=== PATIENT | male | born 1990 | race Caucasian/White ===

== ENCOUNTER 2016-10-18 02:12 | Emergency (ER) | payer MEDICAID ==
[~2016-10-18] VITALS: Ht 177.8 cm; Wt 85.0 kg
[2016-10-18] MEDS ORDERED: LIDOCAINE 1%-EPI 1:100K, 20ML SQ ONE (02:30)
[2016-10-18] MEDS ORDERED: HYDROcodone/APAP 5/325 TABLET PO PRN (02:30)
[2016-10-18] MEDS ORDERED: HYDROcodone/APAP 5/325 TABLET ONE (02:31)
[2016-10-18 03:45] VITALS: BP 135/80
== END 2016-10-18 03:47 | disposition home or self-care (01) ==
LOC: ED 03:40
DX: S01.411A Laceration without foreign body of right cheek and temporomandibular area, initial encounter (principal); S02.81XA Fracture of other specified skull and facial bones, right side, initial encounter for closed fracture; S02.40CA Maxillary fracture, right side, initial encounter for closed fracture; R04.0 Epistaxis; Y00.XXXA Assault by blunt object, initial encounter; Y93.89 Activity, other specified; Y99.8 Other external cause status; Y92.89 Other specified places as the place of occurrence of the external cause
CPT/HCPCS: 12011; 70450; 70486; 99284

== ENCOUNTER 2016-10-21 16:52 | Emergency (ER) | payer MEDICAID ==
[~2016-10-21] VITALS: Ht 177.8 cm; Wt 82.4 kg
[2016-10-21 16:54] VITALS: BP 133/82
== END 2016-10-21 17:31 | disposition home or self-care (01) ==
LOC: ED 17:30
DX: H57.11 Ocular pain, right eye (principal); F17.200 Nicotine dependence, unspecified, uncomplicated; F11.10 Opioid abuse, uncomplicated; Z76.0 Encounter for issue of repeat prescription; Z88.0 Allergy status to penicillin
CPT/HCPCS: 99281